=== PATIENT | male | born 1955 | race Caucasian/White ===

== ENCOUNTER → 2017-09-25 | Outpatient (CLI) | payer OTHER ==
[2017-09-25 10:11] LABS: Basophils % (A) 0 %; Eosinophils # (A) 0.1 k/uL (0-0.7); Eosinophils % (A) 2 %; HCT 47.7 % (39.0-53.0); HGB 16.3 gm/dL (13.0-17.5); Lymphocytes # (A) 1.5 k/uL (1.0-4.8); Lymphocytes % (A) 30 %; MCH 32.1 pg (25.0-35.0); MCV 94.1 fL (80.0-100.0); Mean Platelet Volume 6.9; Monocytes # (A) 0.4 k/uL (0-1.0); Monocytes % (A) 7 %; Neutrophils % (A) 60 %; Platelet Count 316 k/uL (150-450); RBC 5.07 m/uL (4.30-5.90); RDW 13.2 % (11.5-15.5)
[2017-09-25 10:52] LABS: Anion Gap 7 mmol/L; Blood Urea Nitrogen 13 mg/dL (9-20); Calcium 9.4 mg/dL (8.4-10.2); Carbon Dioxide 27 mmol/L (22-30); Chloride 106 mmol/L (98-107); Glucose 142 mg/dL (74-99); Potassium 4.5 mmol/L (3.5-5.1); Sodium 140 mmol/L (137-145)
== END | disposition home or self-care (01) ==
LOC: LABPAT 09:17
PROVIDERS: ATTEND Urology
DX: Z01.812 Encounter for preprocedural laboratory examination (principal); C61 Malignant neoplasm of prostate; R35.0 Frequency of micturition
CPT/HCPCS: 36415; 80048; 85025; 87086

== ENCOUNTER 2017-10-02 07:30 | Inpatient (IN) | payer OTHER ==
[2017-09-28 13:38] VITALS: BMI 26.4
--- NOTE | 2017-10-01 13:13 | P.GSHP ---
History of Present Illness H&P Date: 09/24/17 Chief Complaint: Prostate Cancer the patient is a 61-year-old white male with a family history of prostate cancer. In view of a rising PSA level, he underwent a prostate ultrasound with biopsies in December 2016. 1 of 12 biopsies showed [place] 6 adenocarcinoma ( right apex, 20%). He underwent repeat biopsies in June 2017, this time showing [place] 7 (3+4) adenocarcinoma in 1 of 12 biopsies (right mid, 40%). Alternative treatment options were reviewed with the patient and his in detail. He has elected to undergo a left nerve sparing robotic-assisted laparoscopic prostatectomy (RALP). - Allergic/Immunologic Allergic/Immunologic: Reports seasonal allergies Past Medical History - Past Family History Father Family Medical History: Cancer Additional Family Medical History / Comment(s): prostate, another with lymphoma Brother(s) Family Medical History: Cancer Additional Family Medical History / Comment(s): prostate Medications and Allergies Home Medications Medication Instructions Recorded Confirmed Type No Known Home Medications 09/28/17 09/28/17 History Allergies Allergy/AdvReac Type Severity Reaction Status Date / Time amoxicillin Allergy Rash/Hives Verified 09/28/17 13:26 Surgical - Exam - General well developed, well nourished, no distress - Respiratory normal respiratory effort, clear to auscultation - Cardiovascular Rhythm: regular Abnormal Heart Sounds: no systolic murmur, no diastolic murmur, no rub, no S3 Gallop, no S4 Gallop, no click, no other - Abdomen Abdomen: soft, non tender, no guarding, no rigid, no rebound Hernia: none - Rectum Rectum: normal sphincter tone, no masses, other (prostate 20 grams, smooth) - Psychiatric oriented to time, oriented to person, oriented to place, speech is normal, memory intact Assessment and Plan Plan: Robotic Assisted Laparoscopic Prostatectomy. The procedure has been reviewed in detail with the patient. I explained that this is a procedure of choice in a healthy male under 70 years of age or in any person who has an expected longevity of greater than 10 years. I explained in great detail the potential risks, which include anesthesia, bleeding, and infection. In addition, I went into great detail concerning the two common complications, ie impotence and urinary incontinence. I explained that other complications include intestinal injury (which may require a colostomy), ureteral injury, post-operative penoscrotal edema, bladder neck contracture, urethral stricture, lymphocele, post-operative ileus, thrombophlebitis, wound separation, and possible urinary fistula. The patient has also been advised of the possibility of treatment failure, and the possible need for adjuvant therapy. He is interested in maintaining potency and thus desires neurovascular bundle preservation. However, he understands the possibility of postoperative erectile dysfunction despite preservation of the left neurovascular bundle. He has elected to undergo an RALP rather than an open radical retropubic prostatectomy. He understands the possible need to convert this to an open procedure. it is not felt that a pelvic lymphadenectomy is warranted.
[~2017-10-02 07:30] MED LIST: DEXAMETHASONE SOD PHOSPHATE 10 MG/ML 1 ML VIAL IV ONE; HEPARIN SODIUM,PORCINE 5,000 UNIT/ML 1 ML VIAL SQ ONE; HYDROmorphone 0.5 MG/0.5 ML SYRINGE IVP PRN; LEVOFLOXACIN 500MG-D5W PMX 500 MG in DEXTROSE/WATER 1 100ML.BAG IVPB ONE; LIDOCAINE 1% 20 ML VIAL (10MG/ML) FOR IV START INTRADERMA PRN; MIDAZOLAM 2 MG/2 ML VIAL IV PRN; ONDANSETRON 4 MG/2 ML VIAL IVP ONE; fentaNYL (PF) 50 MCG/ML 2 ML AMP IV PRN
[2017-10-02] MEDS: LACTATED RINGERS 1,000 ML IV SCH (10:17)
[2017-10-02] MEDS ORDERED: LIDOCAINE 1% 20 ML VIAL (10MG/ML) FOR IV START INTRADERMA ONE (10:17)
[2017-10-02] MEDS ORDERED: LIDOCAINE 1% INJ 10MG/ML (20 ML MDV) ONE (11:23)
[2017-10-02] MEDS ORDERED: SUCCINYLCHOLINE CHLORIDE 100 MG/5 ML SYR IV ONE (11:23)
[2017-10-02] MEDS ORDERED: MIDAZOLAM 2 MG/2 ML VIAL ONE (11:23)
[2017-10-02] MEDS ORDERED: ePHEDrine SULFATE/0.9% NACL/PF 50 MG/5 ML SYRINGE IV ONE (11:23)
[2017-10-02] MEDS ORDERED: PROPOFOL 10 MG/ML 20 ML VIAL IV ONE (11:23)
[2017-10-02] MEDS ORDERED: fentaNYL (PF) 50 MCG/ML 2 ML AMP ONE ×2 (11:23)
[2017-10-02] MEDS ORDERED: ONDANSETRON 4 MG/2 ML VIAL ONE (11:23)
[2017-10-02] MEDS ORDERED: ROCURONIUM BROMIDE 10 MG/ML 10 ML VIAL IV ONE (11:23)
[2017-10-02] MEDS ORDERED: NEOSTIGMINE 1 MG/ML 10 ML VIAL ONE (11:23)
[2017-10-02] MEDS ORDERED: GLYCOPYRROLATE 0.2 MG/ML 2 ML VIAL ONE (11:23)
[2017-10-02] MEDS ORDERED: ROPIVACAINE 5 MG/ML 30 ML VIAL MISCELLANE ONE (11:58)
[2017-10-02] MEDS ORDERED: LACTATED RINGERS 1,000 ML IV ONE (15:08)
[2017-10-02] MEDS ORDERED: ACETAMINOPHEN TAB 325 MG TAB PO PRN (15:27)
[2017-10-02] MEDS ORDERED: MAG HYDROX/AL HYDROX/SIMETH 30 ML CUP PO PRN (15:27)
[2017-10-02] MEDS ORDERED: HYDROmorphone 1 MG/ML 1 ML SYRINGE IVP PRN (15:27)
[2017-10-02] MEDS ORDERED: ONDANSETRON 4 MG/2 ML VIAL IVP PRN (15:27)
[2017-10-02] MEDS ORDERED: DEXTROSE 5%-0.45% NACL 1,000 ML IV SCH (15:30)
--- NOTE | 2017-10-02 15:41 | P.OP ---
Date of Procedure: 10/02/17 Preoperative Diagnosis: Adeoncarcinoma of the Prostate, Clinical Stage [id number] Postoperative Diagnosis: Same Procedure(s) Performed: Nerve Sparing Robotic-assisted Laparoscopic Prostatectomy (RALP) Anesthesia: ROHAN Surgeon: Samir Brown Retaining Room Cutter #1: Bubba Scott Estimated Blood Loss (ml): 150 IV fluids (ml): 900 Pathology: other (prostate and seminal vesicles) Condition: stable Disposition: PACU Indications for Procedure: The patient is a 61-year-old white male with a family history of prostate cancer. In view of a rising PSA level, he underwent a prostate ultrasound with biopsies in December 2016. 1 of 12 biopsies showed [place] 6 adenocarcinoma ( right apex, 20%). He underwent repeat biopsies in June 2017, this time showing [place] 7 (3+4) adenocarcinoma in 1 of 12 biopsies (right mid, 40%). Alternative treatment options were reviewed with the patient and his in detail. He has elected to undergo a left nerve sparing robotic-assisted laparoscopic prostatectomy (RALP). Operative Findings: No evidence of extraprostatic disease. Description of Procedure: The patient was taken in the operating room and placed in the dorsal lithotomy position, with his legs supported in Miguel Angel stirrups. He was carefully positioned on a beanbag for stability. The abdomen and external genitalia were prepped and draped sterilely. A Esquivel catheter was inserted. The Veress needle was passed through the anterior abdominal wall immediately cephalad to the umbilicus, and insufflation was performed to a pressure of 20 mm Hg. Once insufflation was performed, the Veress needle was removed and a supraumbilical incision was made, through which a 12 mm camera port was placed. Under camera guidance, 3 8 mm robotic ports were placed, 2 on the left and one on the right. An additional 12 mm port was placed on the right lateral side for use as an orthodontic assistant port. A 5 mm port was placed to the right of the camera port for suction. The patient was placed in Trendelenburg position, and docking was then performed to the da Nicho system utilizing a 4-arm approach. The abdomen was examined. The sigmoid colon was mobilized out of the pelvis. The peritoneum was incised lateral to the medial umbilical ligaments bilaterally , exposing the pubis. The peritoneum was then incised across the midline, allowing the bladder flap to be taken down. The endopelvic fascia was opened bilaterally, and muscular attachments from the urogenital diaphragm were swept away from the prostate. The vesical neck was incised transversely, down to the lumen. The Sequivel catheter was brought out through the anterior vesical neck incision and was used for traction. The posterior aspect of the vesical neck was incised, such that the full-thickness of the vesical neck was divided. The anterior layer of the Denonvilliers fascia was incised, exposing the vas deferens. Each were isolated and divided. Next, each of the seminal vesicles were dissected away from adjacent tissues, and vascular attachments were cauterized and divided. The posterior leaf of Denonvilliers fascia was incised transversely, allowing entry into the plane between the prostate and rectum. With lateral spreading, this plane was developed down to the apex. This exposed the lateral vascular pedicles bilaterally. These were clipped and divided in an antegrade fashion, down to the apex. The use of electrocautery was avoided to prevent thermal damage to the nerves. The plane of dissection was adjacent to the prostate to preserve the neurovascular bundles. The remaining apical attachments were swept away from the prostate. The dorsal venous complex was incised, as well as periurethral tissue. At this point, only the urethra remained intact. This was transected immediately distal to the prostatic apex using cold scissors. The specimen was placed within a specimen bag. The dorsal venous complex was sutured using a V-Loc suture in a running fashion. A second V-Loc suture was then used to place the Quan stitch, incorporating the rhabdosphincter and the edge of Denonvilliers fascia. This allowed the bladder to be taken down to the urethra, leaving the vesical neck immediately adjacent to the urethra. The vesicourethral anastomosis was then performed using a V-Loc suture in a running fashion. After completing the anastomosis, an 18-Lebanese Esquivel catheter was placed and approximately 150 mL of 0.9 normal saline were instilled into the bladder. No extravasation of irrigant from the vesicourethral anastomosis was noted. A small amount of oozing was noted from the vascular pedicles and apex, so Surgicel was placed bilaterally. The patient was returned to the supine position. Undocking was performed, and the specimen bag sutures were passed through the camera port. After removing all the ports and allowing all of the CO2 to be released from the peritoneal cavity, the camera port incision was enlarged to allow removal of the surgical specimen. The fascia of this incision was then closed using 0 Vicryl suture in an interrupted [id number] fashion. Each of the skin incisions were then closed using 4-0 Monocryl suture in a subcuticular fashion. Marcaine was injected at each of the incision sites. Dermabond was applied to each incision. The Esquivel catheter was connected to gravity drainage. All sponge and needle counts were correct. The patient tolerated the procedure well was taken to the recovery room in stable condition.
[2017-10-02] MEDS: KETOROLAC 30 MG/ML 1 ML VIAL IVP PRN ×2 (16:55→23:13)
[2017-10-02] MEDS ORDERED: MORPHINE SULFATE 4 MG/ML SYRINGE IVP PRN (18:05)
[2017-10-02 18:46] VITALS: RESP 15
[2017-10-02] MEDS: HEPARIN SODIUM,PORCINE 5,000 UNIT/ML 1 ML VIAL SQ SCH (21:33)
[2017-10-03 07:59] VITALS: BP 122/71; PULSE 82; TEMP 98.7
[2017-10-03] MEDS: KETOROLAC 30 MG/ML 1 ML VIAL IVP PRN (08:23)
[2017-10-03] MEDS: HEPARIN SODIUM,PORCINE 5,000 UNIT/ML 1 ML VIAL SQ SCH (08:23)
--- NOTE | 2017-10-03 09:02 | P.PN ---
Progress Note - Text Progress Note Date: 10/03/17 The patient is afebrile and has been comfortable with ketorolac. He is tolerating a regular diet and has no nausea. His urine is blood-tinged. His abdominal incisions appear to be uninflamed. The patient says that he would be comfortable going home today and he will follow up with Dr. Brown on 10/09.
== END 2017-10-03 11:42 | disposition home or self-care (01) | DRG 708 ==
LOC: EDSTATUS 07:30 → 2ORMAIN 09:29 → 3SUR 15:36
PROVIDERS: ADMIT Urology; ATTEND Urology
PROC: 8E0W4CZ Robotic Assisted Procedure of Trunk Region, Percutaneous Endoscopic Approach (ICD-10-PCS; 2017-10-02)
PROC: 0VT04ZZ Resection of Prostate, Percutaneous Endoscopic Approach (ICD-10-PCS; principal; 2017-10-02 07:30)
DX: C61 Malignant neoplasm of prostate (principal); J30.2 Other seasonal allergic rhinitis; Z88.1 Allergy status to other antibiotic agents; Z80.7 Family history of other malignant neoplasms of lymphoid, hematopoietic and related tissues; Z80.42 Family history of malignant neoplasm of prostate
CPT/HCPCS: 86850; 86900; 86901; 88305; 88309

== ENCOUNTER → 2017-11-06 | Outpatient (CLI) | payer OTHER ==
[2017-11-06 13:11] LABS: HCT 47.4 % (39.0-53.0); HGB 15.3 gm/dL (13.0-17.5); MCH 31.2 pg (25.0-35.0); MCHC 32.3 g/dL (31.0-37.0); MCV 96.5 fL (80.0-100.0); Mean Platelet Volume 7.3; Platelet Count 264 k/uL (150-450); RBC 4.91 m/uL (4.30-5.90); RDW 12.9 % (11.5-15.5); WBC 4.9 k/uL (3.8-10.6)
[2017-11-06 13:28] LABS: Appearance,Urine Clear (Clear); Bacteria,Urine Rare /hpf; Bilirubin,Urine Negative (Negative); Blood,Urine Small (Negative); Color,Urine Yellow; Glucose,Urine (UA) Negative (Negative); Ketones,Urine Negative (Negative); Leukocyte Esterase,Urine Large (Negative); Mucus,Urine Rare /hpf; Nitrite,Urine Negative (Negative); Protein,Urine Trace (Negative); RBC,Urine 9 /hpf (0-5); Specific Gravity,Urine 1.011 (1.001-1.035); Sperm,Urine Rare /hpf; Urobilinogen,Urine <2.0 mg/dL (<2.0); WBC,Urine 31 /hpf (0-5)
[2017-11-06 13:33] LABS: ALT 44 U/L (21-72); AST 35 U/L (17-59); Alkaline Phosphatase 97 U/L (38-126); Anion Gap 8 mmol/L; Blood Urea Nitrogen 13 mg/dL (9-20); Calcium 9.3 mg/dL (8.4-10.2); Carbon Dioxide 25 mmol/L (22-30); Chloride 107 mmol/L (98-107); Glucose 96 mg/dL (74-99); Potassium 4.5 mmol/L (3.5-5.1); Sodium 140 mmol/L (137-145); Total Bilirubin 0.5 mg/dL (0.2-1.3); Total Protein 6.8 g/dL (6.3-8.2)
[2017-11-06 14:11] LABS: Prostate Specific Antigen <0.10 ng/mL (0.00-4.00)
[2017-11-06 22:15] LABS: Hemoglobin A1C 5.4 % (4.0-6.0)
== END | disposition home or self-care (01) ==
LOC: LABWHC1 11:26
PROVIDERS: ATTEND Urology
DX: Z00.00 Encounter for general adult medical examination without abnormal findings (principal); N39.0 Urinary tract infection, site not specified; C61 Malignant neoplasm of prostate
CPT/HCPCS: 36415; 80053; 81001; 83036; 84153; 85027; 87086

== ENCOUNTER → 2017-11-09 | Outpatient (CLI) | payer OTHER ==
[2017-11-09 11:13] LABS: Cholesterol 220 mg/dL (<200); HDL Cholesterol 51 mg/dL (40-60); LDL Cholesterol,Calculated 144 mg/dL (0-99); Triglycerides 124 mg/dL (<150)
== END ==
LOC: LABWHC1 09:22
PROVIDERS: ATTEND Family Medicine
DX: Z00.00 Encounter for general adult medical examination without abnormal findings (principal)
CPT/HCPCS: 36415; 80061

== ENCOUNTER → 2018-05-27 | Outpatient (CLI) | payer OTHER | LOC: LABWHC1 09:47 | PROVIDERS: ATTEND Urology | DX: C61 Malignant neoplasm of prostate (principal) | CPT/HCPCS: 36415; 84153 ==

== ENCOUNTER 2018-06-30 06:14 | Day surgery (SDC) | payer OTHER ==
[~2018-06-30 06:14] MED LIST changes: -HYDROmorphone 0.5 MG/0.5 ML SYRINGE IVP PRN; -LEVOFLOXACIN 500MG-D5W PMX 500 MG in DEXTROSE/WATER 1 100ML.BAG IVPB ONE; -ONDANSETRON 4 MG/2 ML VIAL IVP ONE; +ceFAZolin IN SWFI 2 GM/20 ML SYRINGE IVP ONE
[2018-06-30] MEDS ORDERED: LACTATED RINGERS 1,000 ML IV ONE (06:43)
[2018-06-30] MEDS ORDERED: ONDANSETRON 4 MG/2 ML VIAL IVP ONE (06:44)
[2018-06-30 06:50] LABS: Basophils % (A) 1 %; Eosinophils # (A) 0.1 k/uL (0-0.7); Eosinophils % (A) 4 %; HCT 48.9 % (39.0-53.0); HGB 16.3 gm/dL (13.0-17.5); Lymphocytes # (A) 1.2 k/uL (1.0-4.8); Lymphocytes % (A) 30 %; MCH 31.8 pg (25.0-35.0); MCHC 33.4 g/dL (31.0-37.0); MCV 95.1 fL (80.0-100.0); Mean Platelet Volume 7.5; Monocytes # (A) 0.4 k/uL (0-1.0); Monocytes % (A) 9 %; Neutrophils # (A) 2.1 k/uL (1.3-7.7); Neutrophils % (A) 54 %; Platelet Count 290 k/uL (150-450); RBC 5.14 m/uL (4.30-5.90); RDW 13.9 % (11.5-15.5); WBC 3.9 k/uL (3.8-10.6)
[2018-06-30] MEDS ORDERED: GLYCOPYRROLATE 0.2 MG/ML 2 ML VIAL ONE (07:30)
[2018-06-30] MEDS ORDERED: SUCCINYLCHOLINE CHLORIDE 100 MG/5 ML SYR IV ONE (07:30)
[2018-06-30] MEDS ORDERED: KETOROLAC 30 MG/ML 1 ML VIAL ONE (07:30)
[2018-06-30] MEDS ORDERED: HYDROmorphone (PF) 1 MG/ML ONE (07:30)
[2018-06-30] MEDS ORDERED: ROCURONIUM BROMIDE 10 MG/ML 10 ML VIAL IV ONE (07:30)
[2018-06-30] MEDS ORDERED: PROPOFOL 10 MG/ML 20 ML VIAL IV ONE (07:30)
[2018-06-30] MEDS ORDERED: fentaNYL (PF) 50 MCG/ML 2 ML AMP ONE (07:30)
[2018-06-30] MEDS ORDERED: NEOSTIGMINE 1 MG/ML 10 ML VIAL ONE (07:30)
[2018-06-30] MEDS ORDERED: LIDOCAINE 1% INJ 10MG/ML (20 ML MDV) ONE (07:30)
[2018-06-30] MEDS ORDERED: MIDAZOLAM 2 MG/2 ML VIAL ONE (07:30)
--- NOTE | 2018-06-30 07:35 | P.GSHP ---
History of Present Illness H&P Date: 06/30/18 Chief Complaint: Incisional hernia Patient was as the hospital with complaints of a bulge above the umbilicus. Last seen in the office in mid May. Increasing in size. Mild pain at times. This is at the site of previous prostatectomy extraction site. Past Medical History Past Medical History: Cancer Additional Past Medical History / Comment(s): current incisional hernia History of Any Multi-Drug Resistant Organisms: None Reported Additional Past Surgical History / Comment(s): 10/04/17 PROSTATECTOMY. Past Anesthesia/Blood Transfusion Reactions: No Reported Reaction Past Psychological History: No Psychological Hx Reported Smoking Status: Never smoker Past Alcohol Use History: Daily Past Drug Use History: Marijuana - Past Family History Father Family Medical History: Cancer Additional Family Medical History / Comment(s): prostate, another with lymphoma Brother(s) Family Medical History: Cancer Additional Family Medical History / Comment(s): prostate Medications and Allergies Home Medications Medication Instructions Recorded Confirmed Type No Known Home Medications 06/29/18 06/29/18 History Allergies Allergy/AdvReac Type Severity Reaction Status Date / Time amoxicillin Allergy Rash/Hives Verified 06/29/18 08:16 Surgical - Exam Vital Signs Temp Pulse Resp BP Pulse Ox 97.8 F 68 18 138/70 97 06/30/18 06:34 06/30/18 06:34 06/30/18 06:34 06/30/18 06:34 06/30/18 06:34 Physical exam: General: Well-developed, well-nourished HEENT: Normocephalic, sclerae nonicteric Abdomen: Nontender, nondistended, reducible hernia above umbilicus at site of previous scar, mild diastases Extremities: No edema Neuro: Alert and oriented Results - Labs 06/30/18 06:43 Assessment and Plan (1) Incisional hernia Narrative/Plan: Will proceed with operative repair with mesh at this time. Risks of bleeding, infection, recurrence, bladder and bowel injury, numbness, nerve injury were discussed with the patient. The patient understands and wishes to proceed. Current Visit: Yes Status: Acute Code(s): K43.2 - INCISIONAL HERNIA WITHOUT OBSTRUCTION OR GANGRENE SNOMED Code(s): 067531580
[2018-06-30] MEDS ORDERED: BUPIVACAINE-EPI 0.5%-1:200,000 10 ML VIAL SQ ONE ×2 (08:08)
[2018-06-30] MEDS ORDERED: HYDROcodone/APAP 5-325MG 1 EACH TAB PO PRN (09:04)
[2018-06-30] MEDS ORDERED: NALOXONE 0.4 MG/ML 1 ML VIAL IV PRN (09:04)
--- NOTE | 2018-06-30 09:08 | P.OP ---
Date of Procedure: 06/30/18 Procedure(s) Performed: PREOPERATIVE DIAGNOSIS: Reducible incisional hernia POSTOPERATIVE DIAGNOSIS: Same PROCEDURE: Reducible incisional hernia with mesh SURGEON: Troy EBL: 10 mL ANESTHESIA: Gen. COMPLICATIONS: None OPERATIVE PROCEDURE: Patient placed on the operating table in the supine position. Abdomen was prepped and draped in usual sterile fashion. The previous incision was re-incised. Dissection through the subcutaneous tissues took place using electrocautery. A moderate sized hernia was identified. The hernia sac was carefully dissected down to the level of the fascia where it was excised. The defect in the fascia measured 4.5 x 2.5 cm oriented horizontally. There were no adhesions to the fascia at that location. The 8 cm ventral ex mesh was placed beneath the fascia and sutured to the fascia using trans-fascial 0 Ethibond sutures. This was performed circumferentially. The defect was then closed horizontally using a vest over pants interrupted 0 Ethibond suture. The folding edge was tacked down using interrupted 0 Ethibond sutures as well. The subcutaneous tissues were closed using 3-0 Vicryl sutures. The skin was closed using a running 4-0 Monocryl stitch. Skin glue and sterile dressings were applied. DISPOSITION: Stable to recovery room
[2018-06-30 09:13] VITALS: TEMP 96.8
[2018-06-30] MEDS ORDERED: HYDROmorphone 1 MG/ML 1 ML SYRINGE IVP ONE ×2 (09:42→09:48)
[2018-06-30] MEDS: LACTATED RINGERS 1,000 ML IV SCH ×2 (09:45→10:33)
[2018-06-30 10:32] VITALS: RESP 18
[2018-06-30] MEDS ORDERED: HYDROcodone/APAP 5-325MG 1 EACH TAB PO ONE (10:38)
[2018-06-30 13:28] VITALS: BP 113/68; PULSE 65
== END 2018-06-30 13:29 | disposition home or self-care (01) ==
LOC: OR 06:14
PROVIDERS: ATTEND Surgery
DX: K43.2 Incisional hernia without obstruction or gangrene (principal); Z90.79 Acquired absence of other genital organ(s); Z85.46 Personal history of malignant neoplasm of prostate; Z88.0 Allergy status to penicillin
CPT/HCPCS: 86900; 86901; 85025; 86850; 88302; 49560; 49568; C1781; J2250; J1644; J1100; J2710; J2405; J2001; J3010; J1885; J1170; J0330; J2704; J0690

== ENCOUNTER 2020-09-07 09:57 | Day surgery (SDC) | payer MEDICARE, OTHER ==
[2020-09-05 08:38] VITALS: BMI 26.4
[~2020-09-07 09:57] MED LIST changes: -DEXAMETHASONE SOD PHOSPHATE 10 MG/ML 1 ML VIAL IV ONE; -HEPARIN SODIUM,PORCINE 5,000 UNIT/ML 1 ML VIAL SQ ONE; +LACTATED RINGERS 1,000 ML IV SCH; +LIDOCAINE 1% (10MG/ML) FOR IV START INTRADERMA PRN; -LIDOCAINE 1% 20 ML VIAL (10MG/ML) FOR IV START INTRADERMA PRN; -MIDAZOLAM 2 MG/2 ML VIAL IV PRN; -ceFAZolin IN SWFI 2 GM/20 ML SYRINGE IVP ONE; -fentaNYL (PF) 50 MCG/ML 2 ML AMP IV PRN
[2020-09-07 10:27] VITALS: TEMP 97.8
[2020-09-07] MEDS ORDERED: LACTATED RINGERS 1,000 ML IV ONE (10:27)
[2020-09-07] MEDS ORDERED: PROPOFOL 10 MG/ML 20 ML VIAL IV ONE (10:51)
--- NOTE | 2020-09-07 11:05 | P.PCN ---
Date of Procedure: 09/07/20 Procedure(s) Performed: BRIEF HISTORY: Patient is a 64-year-old pleasant white male scheduled for an elective colonoscopy as a part of evaluation of prior history of colon polyps and change in bowel habits. Last colonoscopy was 5 years ago. PROCEDURE PERFORMED: Colonoscopy snare polypectomy. PREOPERATIVE DIAGNOSIS: History of colon polyps and change in bowel habits. IV sedation per Anesthesia. PROCEDURE: After informed consent was obtained, the patient, was brought into the endoscopy unit. IV sedation was administered by Anesthesia under continuous monitoring. Digital rectal examination was normal. Initially the Olympus CF-160 flexible video colonoscope was then inserted in the rectum, gradually advanced into the cecum without any difficulty. Careful examination was performed as the scope was gradually being withdrawn. Ileocecal valve and the appendiceal orifice were visualized and appeared normal. Prep was excellent. Mucosa of the cecum, ascending colon appeared normal. In the transverse colon there was a 3-4 mm polyp that was removed by snare polypectomy. Rest of the, transverse colon, descending colon, sigmoid colon, and rectum appeared normal. Retroflexion was performed in the rectum and no lesions were seen. The patient tolerated the procedure well. IMPRESSION: 3 mm transverse colon polyp status post polypectomy Rest of the colon appeared normal RECOMMENDATIONS: Findings of this examination were discussed with the patient as well as his family.. He was advised to follow with the biopsy results. If the biopsy shows an adenoma he can have a repeat colonoscopy in 5 years
[2020-09-07 11:31] VITALS: BP 135/84; PULSE 75; RESP 18
--- NOTE | 2020-09-11 08:14 | CDI ---
Outpatient Documentation Clarification Form Date: 09/11/20 CDS/Full Service Supervisor Name: Lee Ann Montero Phone: If any questions, call Alaina Benz Ship Loader at [phone] Patient Name: Antony Hutchinson Admit Date: 09/07/20 Discharge Date: 09/07/20 ATTENTION: The [facility] Coding Staff appreciate your assistance in clarifying documentation. Please respond to the clarification below the line at the bottom and electronically sign. The [facility] Coding staff will review the response and follow-up if needed. Please note: Queries are made part of the Legal Health Record. If you have any questions, please contact the Ship Loader. Dear Dr. High, Please provide clarification as to the part of the colon where the polyp was removed. The procedure note states polypectomy was performed in the transverse colon. The pathology report states the polyp was from the descending colon. Please clarify. Thank you for your kind consideration. __ Addendum dictated in EMR Dr.K High MTDD
== END 2020-09-07 11:40 | disposition home or self-care (01) ==
LOC: ORWHC2ENDO 09:57
PROVIDERS: ATTEND Internal Medicine Gastroenterology
DX: D12.4 Benign neoplasm of descending colon (principal); Z86.010 Personal history of colon polyps; I25.10 Atherosclerotic heart disease of native coronary artery without angina pectoris; Z85.46 Personal history of malignant neoplasm of prostate; Z88.0 Allergy status to penicillin
CPT/HCPCS: 88305; 45385; J2704